=== PATIENT | female | born 1955 | race Asian ===

== ENCOUNTER 2017-03-23 22:07 | Inpatient (IN) | payer MEDICAID ==
[~2017-03-23] VITALS: Ht 162.6 cm; Wt 87.5 kg
--- NOTE | 2017-03-23 22:20 | NUR ---
PT TO ER BED 5. PT BIBRA C/O ABD PAIN WITH NAUSEA X 3 DAYS. DENIES VOMITING. PT HAD DIALYSIS YESTERDAY. NOTED ABD DISTENTION. PT STATES SHE HAD A GOOD BOWEL MOVEMENT THIS AM. 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 VSS/RESP EVEN UNLABORED/NAD NOTED/SKIN WARM AND DRY/AFEBRILE/AOX4. AWAITING MD LAINEZ.
[2017-03-23] MEDS ORDERED: ONDANSETRON HCL/PF - ER 4 MG/2 ML VIAL IV ONE (23:30)
[2017-03-23] MEDS ORDERED: HYDROMORPHONE 1 MG/1 ML DISP.SYRIN IV ONE (23:30)
[2017-03-23] MEDS ORDERED: DICYCLOMINE HCL 10 MG CAPSULE PO ONE ×2 (23:30→23:44)
[2017-03-23] MEDS ORDERED: LIDOCAINE VISCOUS 2% UD 15 ML UDC MM ONE (23:30)
[2017-03-23] MEDS ORDERED: MAG HYDROX/AL HYDROX/SIMETH 30 ML UDC PO ONE (23:30)
--- NOTE | 2017-03-23 23:30 | NUR ---
LAB AT BEDSIDE TO DRAW.
--- NOTE | 2017-03-23 23:40 | NUR ---
PT TO CT VIA W/C.VSS.
[2017-03-23] MEDS ORDERED: LIDOCAINE VISCOUS 2% UD 15 ML UDC ONE (23:43)
[2017-03-23] MEDS ORDERED: MAG HYDROX/AL HYDROX/SIMETH 30 ML UDC ONE (23:43)
[2017-03-23] MEDS ORDERED: ONDANSETRON HCL/PF 4 MG/2 ML VIAL ONE (23:43)
[2017-03-23] MEDS ORDERED: HYDROMORPHONE INJ 2 MG/ML DISP.SYRIN ONE (23:44)
--- NOTE | 2017-03-23 23:55 | NUR ---
PT BACK FROM CT. 20G TO R HAND X 2 ATTEMPTS USING ASEPTIC TECH, IV FLUSHES EASILY WITH NS. NO S/S INFILTRATION.
[2017-03-24] VITALS (16 sets, daily range): BP systolic 122–159; BP diastolic 68–90
[2017-03-24] LABS: EOSINOPHILS # (AUTO) 0.3 /CMM (0.0-0.7); EOSINOPHILS % (AUTO) 3.9 % (0.0-6.0); HEMATOCRIT 22 % (33-45); HEMOGLOBIN 7.5 g/dL (11.5-14.8); LYMPHOCYTES # (AUTO) 0.7 /CMM (0.8-4.8); LYMPHOCYTES % (AUTO) 8.1 % (20.0-44.0); MEAN CORPUSCULAR HEMOGLOBIN 33 PG (26.0-33.0); MEAN CORPUSCULAR HGB CONC 34 g/dl (31.0-36.0); MEAN CORPUSCULAR VOLUME 99 fL (82-100); MONOCYTES # (AUTO) 0.7 /CMM (0.1-1.30); MONOCYTES % (AUTO) 8.1 % (2.0-12.0); NEUTROPHILS # (AUTO) 6.6 /CMM (1.8-8.9); NEUTROPHILS % (AUTO) 79.9 % (43.0-81.0); PLATELET COUNT (AUTO) 225 /CMM (150-450); RDW COEFFICIENT OF VARIATION 22.7 (11.5-15.0); RED BLOOD CELL COUNT(AUTO) 2.25 MIL/uL (4.0-5.2); WHITE BLOOD COUNT (AUTO) 8.2 K/uL (4.3-11.0)
[2017-03-24 00:15] LABS: CALCIUM, SERUM 8.4 mg/dL (8.5-10.1); CREATININE 5.7 mg/dL (0.6-1.3); POTASSIUM 4.1 mmol/L (3.5-5.1)
--- NOTE | 2017-03-24 00:18 | NUR ---
ULTRASOUND AT THE BEDSIDE.
[2017-03-24 00:22] LABS: APPEARANCE,URINE CLEAR (CLEAR); BILIRUBIN,URINE NEGATIVE (NEGATIVE); BLOOD, URINE 2+ Ery/uL (NEGATIVE); COLOR,URINE YELLOW (YELLOW); KETONES,URINE NEGATIVE (NEGATIVE); LEUKOCYTE ESTERASE ,URINE NEGATIVE (NEGATIVE); NITRITE, URINE NEGATIVE (NEGATIVE); PROTEIN,URINE 3+ mg/dl (NEGATIVE); UGLUCOSE NEGATIVE (NEGATIVE); UROBILINOGEN,URINE 0.2 EU/dL (0.2)
[2017-03-24 00:26] LABS: ALBUMIN 3.1 g/dL (3.4-5.0); BILIRUBIN,DIRECT 0.1 mg/dL (0.0-0.2); BILIRUBIN,TOTAL 0.6 mg/dL (0.2-1.0); MAGNESIUM 2.4 mg/dL (1.8-2.4); PHOSPHORUS 4.5 mg/dL (2.5-4.9)
[2017-03-24 00:30] LABS: BACTERIA,URINE None seen /HPF (None Seen); SQUAMOUS EPITHELIAL CELL,UR Few /HPF (None Seen)
[2017-03-24] MEDS ORDERED: CALC667C6 PO (02:47)
[2017-03-24] MEDS ORDERED: GLIM4TAB2 PO (02:47)
[2017-03-24] MEDS ORDERED: ATOR20TA PO (02:47)
[2017-03-24] MEDS ORDERED: CLON0.2T PO (02:47)
[2017-03-24] MEDS ORDERED: FOLI0.8T2 PO (02:47)
[2017-03-24] MEDS ORDERED: ZOLP5TAB8 PO (02:47)
[2017-03-24] MEDS ORDERED: APIX2.5T PO (02:47)
[2017-03-24] MEDS ORDERED: FURO-145 PO (02:47)
[2017-03-24] MEDS ORDERED: CARV12.52 PO (02:47)
[2017-03-24] MEDS ORDERED: CLONIDINE HCL 0.1 MG TABLET PO ONE (03:00)
--- NOTE | 2017-03-24 04:09 | NUR ---
AWARE OF PT B/P 205/100.
[2017-03-24] MEDS ORDERED: hydrALAZINE HCL IV 20 MG VIAL ONE (04:24)
--- NOTE | 2017-03-24 04:29 | NUR ---
MEDICATED PER MD ORDERS.
[2017-03-24] MEDS ORDERED: hydrALAZINE HCL IV 20 MG VIAL IV PRN (04:30)
--- NOTE | 2017-03-24 04:57 | NUR ---
REPORT CALLED TO CECIL CABALLERO FOR MARCEL.
--- NOTE | 2017-03-24 05:05 | NUR ---
PT TRANSPORTED VIA STRETCHER TO [facility] [phone] ON LICENSED FUNERAL DIRECTOR AND EMBALMER WITH RN PER ACLS PROTOCOL.
--- NOTE | 2017-03-24 05:05 | NUR ---
SPEECH PATHOLOGY ASSISTANT ADMISSION NOTE PT ARRIVED VIA GURNEY IN STABLE CONDITION WITH ADMITTING DX OF ANEMIA AND ABDOMINAL PAIN. A/O X4, RESPIRATIONS ARE EVEN AND UNLABORED, NOT IN ANY ACUTE DISTRESS NOTED. AFEBRILE. PUPILS ARE REACTIVE TO LIGHT. BILATERAL HAND RETAIL DIRECTOR ARE STRONG AND EQUAL. VITAL SIGNS:BP122/75 HR67 RR18 T97.8 SPO2 99% @3L/MIN VIA NCM, PL 0/10. ABDOMEN IS NOTED TO BE A BIT DISTENDED, ROUND IN SIZE. DENIES ANY BLADDER DISCOMFORT. PT STATED SHE IS ABLE TO WALK TO THE BATHROOM WITH ASSISTANCE. PT DENIES ANY SOB, N/V, CHEST PAIN AT THIS TIME. PT APPEARS TO BE SLEEPY, BUT EASY TO AROUSE. PERIPHERAL IV NOTED TO RIGHT HAND G20, PATENT, NO INFILTRATION NOTED. 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 PT NOTED WITH RED SCRATCH AN TO RIGHT SHOULDER, AND RIGHT UPPER CHEST PERMA CATH. 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 PHOTOS TAKEN AND PLACED IN PT'S CHART. NO OTHER SKIN INJURIES NOTED AT THIS TIME. PT KEPT CLEAN AND DRY. SAFETY MEASURES IN PLACE, BED IS IN ITS LOWEST AND LOCKED POSITION. INSTRUCTED PT TO USE CALL LIGHT WHEN ASSISTANCE IS NEEDED, CALL LIGHT IS LEFT WITHIN REACH.
--- NOTE | 2017-03-24 07:05 | NUR ---
ENGINEERING MGR OPENING NOTES PT RECEIVED A&0X3 RESTING AWAKE TO FIRM TOUCH. PT WITH O2 VIA NC AT 2 LPM AND SAO2 99%. PT REPORTING SOME SOB WITH EXERTION. PT DENIES PAIN. PT WITH IVC AT L HAND INTACT AND SALINE FLUSH PATENT. PT BED IN LOWEST LOCKED POSITION WITH HANDRAILSX2 AND CALL BENOIT WITHIN REACH. PT BREIFED ON TODAY'S POC AND IS WITHOUT CONCERN OR COMPLAINT AT THIS TIME.
--- NOTE | 2017-03-24 07:40 | NUR ---
RN CLOSING NOTES NEEDS MET AND ANTICIPATED. PT APPEARS TO BE SLEEPY, BUT EASILY AROUSABLE. RESPIRATIONS ARE EVEN AND UNLABORED, NOT IN ANY ACUTE DISTRESS NOTED. DENIES ANY PAIN, N/V, SOB AT THIS TIME. IV TO RIGHT HAND STILL INTACT, NO INFILTRATION NOTED. DRESSING KEPT CLEAN AND DRY. SAFETY MEASURES IN PLACE. BED IS IN LOCKED AND LOWEST POSITION. INSTRUCTED PT TO USE CALL LIGHT WHEN ASSISTANCE IS NEEDED, CALL LIGHT LEFT WITHIN REACH.
[2017-03-24] MEDS ORDERED: CARVEDILOL 12.5 MG TABLET PO SCH (09:00)
[2017-03-24] MEDS ORDERED: VIT B CMPLX 3/FA/VIT C/BIOTIN 1 TAB TABLET PO SCH (09:00)
[2017-03-24] MEDS: CALCIUM ACETATE 667 MG TABLET PO SCH ×3 (09:18→17:18)
[2017-03-24] MEDS: GLIMEPIRIDE 4 MG TABLET PO SCH ×2 (09:18→17:17)
[2017-03-24] MEDS: FUROSEMIDE 20 MG TABLET PO SCH ×2 (09:20→17:17)
[2017-03-24] MEDS: CLONIDINE HCL 0.1 MG TABLET PO SCH ×3 (09:23→17:17)
[2017-03-24] MEDS: APIXABAN 2.5 MG TABLET PO SCH ×2 (09:38→17:19)
[2017-03-24 10:12] LABS: BASOPHILS % (AUTO) 0.4 % (0.0-2.0); EOSINOPHILS # (AUTO) 0.2 /CMM (0.0-0.7); EOSINOPHILS % (AUTO) 2.9 % (0.0-6.0); HEMATOCRIT 22 % (33-45); HEMOGLOBIN 7.4 g/dL (11.5-14.8); LYMPHOCYTES # (AUTO) 0.7 /CMM (0.8-4.8); LYMPHOCYTES % (AUTO) 8.1 % (20.0-44.0); MEAN CORPUSCULAR HEMOGLOBIN 34 PG (26.0-33.0); MEAN CORPUSCULAR HGB CONC 34 g/dl (31.0-36.0); MEAN CORPUSCULAR VOLUME 99 fL (82-100); MONOCYTES # (AUTO) 0.6 /CMM (0.1-1.30); MONOCYTES % (AUTO) 7.6 % (2.0-12.0); NEUTROPHILS # (AUTO) 6.6 /CMM (1.8-8.9); PLATELET COUNT (AUTO) 208 /CMM (150-450); RDW COEFFICIENT OF VARIATION 23.6 (11.5-15.0); RED BLOOD CELL COUNT(AUTO) 2.19 MIL/uL (4.0-5.2); WHITE BLOOD COUNT (AUTO) 8.2 K/uL (4.3-11.0)
[2017-03-24 10:20] LABS: CALCIUM, SERUM 7.8 mg/dL (8.5-10.1); CREATININE 6.1 mg/dL (0.6-1.3); POTASSIUM 4.6 mmol/L (3.5-5.1)
--- NOTE | 2017-03-24 10:22 | NUR ---
MSRN NOTES. BLOOD TRANSFUSION COMMENCED. ALL SAFETY CHECKS, DOCUMENTATION AND EDUCATION COMPLETE.
[2017-03-24 10:47] LABS: THYROID STIMULATING HORMONE 3.094 uIU/mL (0.358-3.74)
--- NOTE | 2017-03-24 13:20 | NUR ---
MSRN NOTES. BLOOD TRANSFUSION COMPLETE. DOCUMENTATION AND EDUCATION COMPLETED. VITALS REMAIN STABLE AND PT REMAINS WITHOUT CONCERN OR COMPLAINT.
--- NOTE | 2017-03-24 14:20 | NUR ---
MSRN NOTES. BLOOD TRANSFUSION 2ND UNIT COMMENCED. ALL SAFETY CHECKS, DOCUMENTATION AND EDUCATION COMPLETE.
--- NOTE | 2017-03-24 17:10 | NUR ---
MSRN NOTES. BLOOD TRANSFUSION UNIT2 COMPLETE. DOCUMENTATION AND EDUCATION COMPLETED. VITALS REMAIN STABLE AND PT REMAINS WITHOUT CONCERN OR COMPLAINT.
--- NOTE | 2017-03-24 18:20 | NUR ---
MSRN D/C NOTE. PT PREPARED FOR D/C PER MD. MD REQUESTING NO MID INFUSION OR POST INFUSION LABS. PT SAO2 WNL ON ROOM AIR AND DENIES PAIN. PT REFUSING SKIN PHOTOS R/T WANTING TO GET HOME. PT AND LIFE MANAGER LINDSEY BRIEFED ON [facility] D/C PACKET, EDUCATION, NEW SCRIPTS AND POST INFUSION EDUCATION. PT VERBALIZING UNDERSTANDING, RESOURCES AND INTENT TO FOLLOW POC. PT IVC REMOVED AND NAD AT SITE. PT WITH ALL BELONGS AND DOCUMENT SIGNED. BELONGINGS CARRIED TO CAR IN ADVANCE BY LINDSEY. ALL NURSE DUTIES ATTENDED TO. RN ESCORT TO CAR VIA WHEELCHAIR. PT AND LINDSEY ARE WITHOUT CONCERN OR COMPLAINT.
[2017-03-24] MEDS ORDERED: ZOLPIDEM TARTRATE 5 MG TABLET PO PRN (22:00)
[2017-03-24] MEDS ORDERED: ATORVASTATIN 10 MG TABLET PO SCH (22:00)
== END 2017-03-24 18:30 | disposition home or self-care (01) | DRG 241 ==
LOC: ER 22:10 → TELE 03-24 03:56 → MED 03-24 09:41
PROVIDERS: ADMIT Internal Medicine; ATTEND Internal Medicine
PROC: 30233N1 Transfusion of Nonautologous Red Blood Cells into Peripheral Vein, Percutaneous Approach (ICD-10-PCS; principal; 2017-03-24)
DX: K29.70 Gastritis, unspecified, without bleeding (principal); I12.0 Hypertensive chronic kidney disease with stage 5 chronic kidney disease or end stage renal disease; N18.6 End stage renal disease; E11.22 Type 2 diabetes mellitus with diabetic chronic kidney disease; Z99.2 Dependence on renal dialysis; Z79.84 Long term (current) use of oral hypoglycemic drugs; Z79.899 Other long term (current) drug therapy; D64.9 Anemia, unspecified; I44.7 Left bundle-branch block, unspecified; Z79.01 Long term (current) use of anticoagulants; E87.1 Hypo-osmolality and hyponatremia; I49.8 Other specified cardiac arrhythmias
CPT/HCPCS: 36415; 76705-TC; 80048-TC; 80076-TC; 81000-TC; 82962-TC; 83690-TC; 83735-TC; 84100-TC; 84443-TC; 84484-TC; 85025-TC; 86850-TC; 86921-TC; 87081-TC; 94799-TC; A4606; J0360; J1170; J2405; J7030; J7040; P9016-BL; Z7610